=== PATIENT | female | born 1995 | race Caucasian/White ===

== ENCOUNTER 2016-07-05 07:25 | Emergency (ER) | payer MEDICAID ==
[2016-07-05 08:11] LABS: PLATELET COUNT 313 x10^3mcL (130-400); RED CELL DISTRIBUTION WIDTH 13.4 % (11.5-14.5)
[2016-07-05 08:12] LABS: UA SPECIFIC GRAVITY >=1.030 (1.005-1.035); microscopic required? YES; urine erythrocyte TRACE (NEGATIVE)
[2016-07-05 08:18] LABS: CALCIUM 8.9 mg/dL (8.5-10.1); CARBON DIOXIDE 29.4 mmol/L (21-32); CHLORIDE SERUM 101 mmol/L (98-107); CREATININE SERUM 0.6 mg/dL (0.6-1.0); GFR1 > 60 mL/min; GLUCOSE SERUM 117 mg/dL (74-106); POTASSIUM SERUM 4.1 mmol/L (3.5-5.1); SODIUM SERUM 140 mmol/L (136-145)
[2016-07-05 08:22] LABS: ALBUMIN 4.2 g/dL (3.4-5.0); ALKALINE PHOSPHATASE 105 U/L (46-116); ALT/SGPT 20 U/L (14-59); AST/SGOT 14 U/L (15-37); BILIRUBIN TOTAL 0.3 mg/dL (0.20-1.00); LIPASE 106 IU/L (73-393)
[2016-07-05 08:23] LABS: TOTAL PROTEIN, SERUM 8.5 g/dL (6.4-8.2)
[2016-07-05 08:32] LABS: BAND NEUTROPHIL 0 % (0-10); BASOPHIL 0 % (0-2); MONOCYTE 3 % (0-7); SEGMENTED NEUTROPHILS 93 % (37-75); rbc morphology (normal/abnorm) NORMAL (NORMAL)
[2016-07-05 08:33] LABS: PLATELET MORPHOLOGY PLATELETS NORMAL
[2016-07-05 10:29] VITALS: BP 100/63
== END 2016-07-05 10:29 | disposition home or self-care (01) ==
LOC: ED 07:25
PROVIDERS: Emergency Medicine
DX: R10.32 Left lower quadrant pain (principal); R10.31 Right lower quadrant pain; R11.12 Projectile vomiting; R19.7 Diarrhea, unspecified
CPT/HCPCS: 83880; J1885; J2405; J7030

== ENCOUNTER 2016-10-26 07:03 | Emergency (ER) | payer SELFPAY ==
[~2016-10-26] VITALS: Ht 149.9 cm; Wt 62.2 kg
[2016-10-26 07:08] VITALS: BP 111/76
== END 2016-10-26 07:54 | disposition home or self-care (01) ==
LOC: ED 07:03
DX: H92.02 Otalgia, left ear (principal)
CPT/HCPCS: J2001

== ENCOUNTER 2018-06-04 23:09 | Emergency (ER) | payer OTHER ==
[~2018-06-04] VITALS: Ht 152.4 cm; Wt 73.9 kg
[2018-06-04 23:15] VITALS: Ht 152.4 cm; Wt 73.9 kg
[2018-06-05 01:29] VITALS: BP 130/80
== END 2018-06-05 01:29 | disposition home or self-care (01) ==
LOC: ED 23:09
DX: F41.1 Generalized anxiety disorder (principal); R07.89 Other chest pain
CPT/HCPCS: 82962

== ENCOUNTER 2019-04-07 16:47 | Emergency (ER) | payer OTHER ==
[~2019-04-07] VITALS: Ht 149.9 cm; Wt 79.4 kg
[2019-04-07 16:58] VITALS: BP 128/81; Ht 149.9 cm; Wt 79.4 kg
== END 2019-04-07 17:47 | disposition home or self-care (01) ==
LOC: ED 16:47
DX: J11.1 Influenza due to unidentified influenza virus with other respiratory manifestations (principal)